=== PATIENT | male | born 1975 | race Caucasian/White ===

== ENCOUNTER → 2021-03-11 11:00 | Outpatient (BNVA) | payer BC, SELFPAY | PROVIDERS: PCP Internal Medicine; Visit Provider Urology ==

== ENCOUNTER → 2021-09-09 11:43 | Outpatient (BNVA) | payer BC, SELFPAY | PROVIDERS: PCP Internal Medicine; Visit Provider Urology | DX: F52.4 Premature ejaculation (principal) | CPT/HCPCS: 99212 ==

== ENCOUNTER → 2022-11-03 14:30 | Outpatient (BNVA) | payer BC, SELFPAY | PROVIDERS: PCP Internal Medicine; Visit Provider Urology ==

== ENCOUNTER → 2022-12-01 14:12 | Outpatient (BNVA) | payer BC, SELFPAY | PROVIDERS: PCP Internal Medicine; Visit Provider Urology ==

== ENCOUNTER 2023-11-13 14:01 | Outpatient (AMB) | payer BC, SELFPAY ==
--- NOTE | 2023-11-13 14:06 | MHC.OFFVIS ---
Intake Visit Reasons: follow up/LABS([facility] Pending) Allergies No Known Allergies Allergy (Verified 12/01/22 14:12) Medication List - Last Reconciled 11/13/23 by Ji Mohr MD cholecalciferol (vitamin D3) 10 mcg PO DAILY lisinopril 10 mg PO DAILY tadalafil 5 mg PO DAILY PRN 90 days tramadol 50 mg PO ONCE PRN HPI Comments Details: Gil is a very pleasant male. He is a patient of Dr. Canseco. He is seen for the following urologic conditions. - erectile dysfunction - premature ejaculation Follow-up premature ejaculation Prior trial dose of sertraline Follow-up of trial of tramadol which has been shown to be partially effective for premature ejaculation - did have benefit - refill provided Has been doing better with every other day 5 mg tadalafil Low normal testosterone for age QOD dosing for tadalafil PSA 11/07 0.5, T 390 Noticed libido decline in last 12 months Sleep study done for sleep terrors - question of sleep apnea since side sleeper May benefit from clomiphene versus testosterone Erectile dysfunction:? He presents today for?for continued evaluation and management of ejaculatory disorder, ?- premature ejaculation ? Symptoms have been present for/since?Ongoing ? Current treatment includes?low dose daily tadalafil ? At this time he experiences erections?are full, rigid and adequate for vaginal penetration, with rapid climax at penetration ? Nocturnal erections?do occur ? Medications include(s)?Tried SSRI. Had headache and was not effective. Repeat trial of combination therapy lead to blunting of affect PFSH Medical History HTN (hypertension) Premature ejaculation Surgical History H/O vasectomy Review of Systems Const Denies chills and Denies fever(s) Card Reports no additional complaints and Denies syncope Resp Denies cough GI Denies abdominal pain and Denies heartburn Reports as per HPI and Denies change in libido Neuro Denies syncope Psych Denies change in libido Endo Denies change in libido Physical Exam Const General: cooperative, healthy appearing, comfortable and no acute distress Orientation/consciousness: patient oriented x3 HEENT Face and sinus: Yes normal facial exam Mouth: moist mucous membranes Neck Neck: Yes normal visual inspection, Yes full ROM and Yes trachea midline Chest Chest palpation & inspection: normal inspection of the chest Resp Effort & Inspection: normal respiratory effort, able to speak in complete sentences and no respiratory distress GI Inspection: Yes normal to inspection Back/Spine/Pelvis Cervical Spine: normal cervical lordosis Thoracic/Lumbar Spine: thoracic and lumbar spine normal to inspection Skin General skin exam: no rashes or lesions noted Neuro General: patient oriented x3, gait normal, tone normal and moves all extremities Extrem General: Yes normal to inspection and Yes capillary refill normal Assessment & Plan Assessment & Plan (1) Erectile dysfunction: Code(s): N52.9 - Male erectile dysfunction, unspecified Category: Medical (2) Premature ejaculation: Code(s): F52.4 - Premature ejaculation Category: Medical (3) Low libido: Code(s): R68.82 - Decreased libido Category: Medical Plan Six-month follow-up Patient Instructions: Imaging studies, laboratory and physical exam results were discussed and reviewed in detail. No major barriers to patient understanding were identified. An opportunity to ask questions regarding the treatment plan was provided. All questions were answered. The patient expressed understanding and agreement with the above treatment plan. The patient is aware they should contact our office by phone for worsening of their current condition or the appearance of new urologic symptoms. Compliance is encouraged with any medications and followup testing that is ordered. It is a privilege to participate in the urologic care of your patient. If you have any questions or concerns regarding treatment for the above conditions, or other urologic issues, please do not hesitate to contact me. The office telephone contact is [phone]. This note is constructed using voice recognition software. While every effort has been made to ensure accuracy economist research assistant errors may have been included. Yours sincerely, Dr Ji Mohr MD, [facility] - Urology Providers of Expert, Compassionate Care for the Genitourinary System Coding Level of Care Code Est Pt Level 3 (74106) Diagnoses Erectile dysfunction N52.9 Premature ejaculation F52.4 Low libido R68.82
== END 2023-11-13 14:42 | disposition home or self-care (01) ==
PROVIDERS: PCP Internal Medicine; Visit Provider Urology
DX: N52.9 Male erectile dysfunction, unspecified (principal); F52.4 Premature ejaculation; R68.82 Decreased libido
CPT/HCPCS: 99213

== ENCOUNTER → 2023-11-13 14:01 | Outpatient (BNVA) | payer BC, SELFPAY | PROVIDERS: PCP Internal Medicine; Visit Provider Urology ==

== ENCOUNTER 2024-05-09 10:06 | Outpatient (AMB) | payer OTHER, SELFPAY ==
--- NOTE | 2024-05-09 10:13 | A.OFFVIS_ITS ---
Intake Visit Reasons: 6M follow up Intake Note: Patient is present for Telephone follow up Erectile Dys Urology Med: Tadalafil Antibiotic Allergy: None Blood Thinner:None Maintainer Central Office Required: No Allergies No Known Allergies Allergy (Verified 05/09/24 10:13) HPI Comments Details: Gil is a very pleasant male. He is a patient of Dr. Canseco. He is seen for the following urologic conditions. - erectile dysfunction - premature ejaculation Telemedicine Evaluation 15 min Consultation [employer] Video Discussed progression of decline in libido May benefit from testosterone stimulation Prescription provided for three-month Follow-up premature ejaculation Prior trial dose of sertraline Tramadol has helped with premature ejaculation - refill provided Has been doing better with every other day 5 mg tadalafil Low normal testosterone for age QOD dosing for tadalafil PSA 11/07 0.5, T 390, 12/08 T 360 Noticed libido decline in last 12 months Sleep study done for sleep terrors - question of sleep apnea since side sleeper Erectile dysfunction:? He presents today for?for continued evaluation and management of ejaculatory disorder, ?- premature ejaculation ? Symptoms have been present for/since?Ongoing ? Current treatment includes?low dose daily tadalafil ? At this time he experiences erections?are full, rigid and adequate for vaginal penetration, with rapid climax at penetration ? Nocturnal erections?do occur ? Medications include(s)?Tried SSRI. Had headache and was not effective. Repeat trial of combination therapy lead to blunting of affect PFSH Medical History Premature ejaculation HTN (hypertension) Surgical History H/O vasectomy Review of Systems Const All systems reviewed & are unremarkable except as noted in HPI and below Reports no additional complaints Resp Reports no additional complaints GI Reports no additional complaints Reports as per HPI Musc Reports no additional complaints Physical Exam Telemedicine evaluation Appropriate responses Regular breathing rate and rhythm HEENT Head: Yes normal to inspection Ears: hearing grossly normal bilaterally Eyes General: appearance normal, both eyes and all related structures Neck Neck: Yes normal visual inspection Chest Chest palpation & inspection: normal inspection of the chest Resp Effort & Inspection: normal respiratory effort and able to speak in complete sentences Telehealth Telehealth Telehealth Platform: [employer] Location of provider rendering services: practice address Location of patient: address on file Patient Identification confirmed using: Name, : Yes Telehealth method: video Patient verbally consented to treatment: Yes Patient verbally consented to billing insurance company: Yes Patient informed of any privacy concerns related to visit: Yes Minutes spent on Phone/Video with Pt.: 15 Assessment & Plan Assessment & Plan (1) Premature ejaculation: Code(s): F52.4 - Premature ejaculation Category: Medical (2) Low libido: Code(s): R68.82 - Decreased libido Category: Medical Plan Three-month follow-up testosterone Orders: Orders Testosterone, Free/Total 3 Months R68.82 - Decreased libido Medications: Refilled tramadol Take 2 hours prior to intended sexual activity 50 mg PO ONCE PRN 30 tabs 0RF premature ejaculation F52.4 - Premature ejaculation tadalafil administer approximately 30min before sexual activity; do not use more than 1 dose per 24hrs 5 mg PO DAILY 90 days PRN 90 tabs 1RF sexual activity F52.4 - Premature ejaculation Patient Instructions: Imaging studies, laboratory and physical exam results were discussed and reviewed in detail. No major barriers to patient understanding were identified. An opportunity to ask questions regarding the treatment plan was provided. All questions were answered. The patient expressed understanding and agreement with the above treatment plan. The patient is aware they should contact our office by phone for worsening of their current condition or the appearance of new urologic symptoms. Compliance is encouraged with any medications and followup testing that is ordered. It is a privilege to participate in the urologic care of your patient. If you have any questions or concerns regarding treatment for the above conditions, or other urologic issues, please do not hesitate to contact me. The office telephone contact is [phone]. This note is constructed using voice recognition software. While every effort has been made to ensure accuracy global analytics head errors may have been included. Yours sincerely, Dr Ji Mohr MD, [facility] - Urology Providers of Expert, Compassionate Care for the Genitourinary System Coding Level of Care Code Tele Est Pt Level 4 (51345) Diagnoses Premature ejaculation F52.4 Low libido R68.82
== END 2024-05-09 10:55 | disposition home or self-care (01) ==
LOC: HO.HUSH 10:06
PROVIDERS: PCP Internal Medicine; Visit Provider Urology
DX: R68.82 Decreased libido (principal); F52.4 Premature ejaculation
CPT/HCPCS: 99214

== ENCOUNTER → 2024-05-09 10:06 | Outpatient (BNVA) | payer OTHER, SELFPAY | PROVIDERS: PCP Internal Medicine; Visit Provider Urology ==

== ENCOUNTER 2024-09-10 08:31 | Outpatient (AMB) | payer OTHER, SELFPAY ==
--- NOTE | 2024-09-10 08:34 | A.OFFVIS_ITS ---
Intake Visit Reasons: 3 month follow up/ Testo Intake Note: Patient is present for 3M/TESTO Urology Medication:TADALAFIL Antibiotic Allergy:NONE Blood Thinner:NONE Chairman & Chief Executive Officer Required: No Allergies No Known Allergies Allergy (Verified 09/10/24 08:36) HPI Comments Details: Gil is a very pleasant male. He is a patient of Dr. Canseco. He is seen for the following urologic conditions. - erectile dysfunction - premature ejaculation Three-month follow-up from enclomiphene trial 6.25 mg daily Testosterone boost to 626 Significant improvement in well being Follow-up premature ejaculation Has been doing better with every other day 5 mg tadalafil Low normal testosterone for age QOD dosing for tadalafil PSA 11/07 0.5, T 390, 12/08 T 360, 09/09 T 626 FT 122 Noticed libido decline in last 12 months Sleep study done for sleep terrors - question of sleep apnea since side sleeper Erectile dysfunction:? Prior trial dose of sertraline Tramadol has helped with premature ejaculation - refill provided ? He presents today for?for continued evaluation and management of ejaculatory disorder, ?- premature ejaculation ? Symptoms have been present for/since?Ongoing ? Current treatment includes?low dose daily tadalafil ? At this time he experiences erections?are full, rigid and adequate for vaginal penetration, with rapid climax at penetration ? Nocturnal erections?do occur ? Medications include(s)?Tried SSRI. Had headache and was not effective. Repeat trial of combination therapy lead to blunting of affect PFSH Medical History Premature ejaculation HTN (hypertension) Surgical History H/O vasectomy Review of Systems Const Denies chills and Denies fever(s) Card Reports no additional complaints and Denies syncope Resp Denies cough GI Denies abdominal pain and Denies heartburn Reports as per HPI and Denies change in libido Neuro Denies syncope Psych Denies change in libido Endo Denies change in libido Physical Exam Const General: cooperative, healthy appearing, comfortable and no acute distress Orientation/consciousness: patient oriented x3 HEENT Face and sinus: Yes normal facial exam Mouth: moist mucous membranes Neck Neck: Yes normal visual inspection, Yes full ROM and Yes trachea midline Chest Chest palpation & inspection: normal inspection of the chest Resp Effort & Inspection: normal respiratory effort, able to speak in complete sentences and no respiratory distress GI Inspection: Yes normal to inspection Back/Spine/Pelvis Cervical Spine: normal cervical lordosis Thoracic/Lumbar Spine: thoracic and lumbar spine normal to inspection Skin General skin exam: no rashes or lesions noted Neuro General: patient oriented x3, gait normal, tone normal and moves all extremities Extrem General: Yes normal to inspection and Yes capillary refill normal Assessment & Plan Assessment & Plan (1) Hypogonadism in male: Code(s): E29.1 - Testicular hypofunction Category: Medical Plan Six-month follow-up lab work Continue combination tadalafil with enclomiphene Orders: Orders Lutenizing Hormone 6 Months E11.69 - Type 2 diabetes mellitus with other specified complication, E29.1 - Testicular hypofunction, N52.1 - Erectile dysfunction due to diseases classified elsewhere Prostate Specific Antigen 6 Months E29.1 - Testicular hypofunction Testosterone, Total 6 Months E29.1 - Testicular hypofunction Patient Instructions: This note is constructed using voice recognition software. While every effort has been made to ensure accuracy irrigation teacher errors may have been included. Imaging studies, laboratory and physical exam results were discussed and reviewed in detail. No major barriers to patient understanding were identified. An opportunity to ask questions regarding the treatment plan was provided. All questions were answered. The patient expressed understanding and agreement with the above treatment plan. The patient is aware they should contact our office by phone for worsening of their current condition or the appearance of new urologic symptoms. Compliance is encouraged with any medications and followup testing that is ordered. It is a privilege to participate in the urologic care of your patient. If you have any questions or concerns regarding treatment for the above conditions, or other urologic issues, please do not hesitate to contact me. The office telephone contact is [phone]. Sincerely, Dr Ji Mohr MD, [facility] - Urology Compassionate Specialist Care for the Genitourinary System Coding Level of Care Code Est Pt Level 3 (98853) Complex EM visit Add On G2211 Diagnoses Hypogonadism in male E29.1
--- OUTSIDE RECORDS SUMMARY | 2024-09-10 08:57 | XMS_ITS | Data Portability ---
Author Organization [place] - [facility], Allergy Address [address] [address] Care Team Providers Care Stove Mounter Name Role Phone GAYLE BILLY Primary Care Provider [phone] Assessment Encounter Date Assessment Date Assessment LastModified by Organization Details LastModified Time 08/06/2024 08/06/2024 The right canal wall down mastoidectomy cavity was debrided today under the binocular microscope. No signs of acute or chronic inflammation. Small tympanic membrane perforation of the right ear appears stable and is providing ventilation to the middle ear space. No need for intervention in this regard. We reviewed his audiogram from 2022 showing mild conductive hearing loss, not enough to warrant consideration of amplification. We discussed the importance of preventative mastoid debridement to reduce the risk of debris impaction and infection. Recommend next debridement in 1 year. [email or web address] Not available 08/06/2024 15:52:26 Plan of Treatment Reminders Order Date Submit Date Provider Last Modified By Organization Details Last Modified Time Details Appointments None record ed. Lab None record ed. Referral None record ed. Procedures None record ed. Surgeries None record ed. Imaging None record ed. Medication Orders None record ed. Patient TargetsNo targets recorded. Patient InstructionsNo instructions recorded. Reason for Referral None Reported. 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; Note: Date Diagnose d: 9 1:32 PM (M26.623 ) Not Available [facility] 4 02:51:17 Tinnitus of right ear 68429293804 08 Active 2017 Tinnitus , right ear; Note: Date Diagnose d: 8 9:33 AM (H93.11) Not Available [facility] 4 02:51:12 Nasal congesti on 85705518 Active 2017 Nasal congesti on; Note: Date Diagnose d: 8 3:33 PM (R09.81) Not Available [facility] 4 02:51:14 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 541174195 Completed 201701/18/2024 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, right ear; Note: Changed from H71.01 to H95.01 (11/02/19 18 12:31 PM) , Date Diagnose d: 8 2:44 PM (H71.01) Not Available [facility] 4 02:51:13 Referred otalgia 20500712 Active 2018 Otalgia secondar y to TMJ; Note: Date Diagnose d: 9 1:29 PM (388.72) Not Available [facility] 4 02:51:14 Granulat ions of mastoid cavity 523388921 Active 2017 Granulat ion of postmast oidectom y cavity, right ear; Note: Date Diagnose d: 05/08/20 18 8:51 AM (H95.121 ) Not Available [facility] 4 02:51:15 Conducti ve hearing loss 65188601 Active 2022 Conducti ve hearing loss, unilater al, right ear, with unrestri cted hearing on the contrala teral side; Note: Date Diagnose d: 3 3:09 PM (H90.11) Conduc tive hearing loss, unilater al, right ear, with unrestri cted hearing on the contrala teral side; Note: Date Diagnose d: 8 9:33 AM (H90.11) ; Start Date : 03/05/20 18 Not Available [facility] 4 02:51:17 Otalgia of right ear 1793147350 Active 2020 Otalgia, right ear; Note: Date Diagnose d: 1 3:43 PM (H92.01) Not Available [facility] 4 02:51:16 Disorder of right Eustachi an tube 94250668294 43730 Active 2017 Other specifie d disorder s of Eustachi an tube, right ear; Note: Date Diagnose d: 05/08/20 18 9:00 AM (H69.81) Not Available [facility] 4 02:51:15 Chronic serous otitis media of right ear 226603394 Active 2017 Chronic serous otitis media, right ear; Note: Date Diagnose d: 05/08/20 18 9:00 AM (H65.21) Not Available [facility] 4 02:51:12 Marginal perforat ion of tympanic membrane 62212713 Active 2020 Other marginal perforat ions of tympanic membrane , right ear; Note: Date Diagnose d: 1 3:40 PM (H72.2X1 ) Not Available [facility] 4 02:51:11 Mixed conducti ve and sensorin eural hearing loss of right ear 13188317285 105 Active 2017 Mixed conducti ve and sensorin eural hearing loss, unilater al, right ear with restrict ed hearing on the contrala teral side; Note: Date Diagnose d: 8 2:59 PM (H90.A31 ) Not Available [facility] 4 02:51:13 Partial loss of ear ossicles 14225414 Active 2017 Partial loss of ear ossicles , right ear; Note: Date Diagnose d: 8 12:48 PM (H74.321 ) Not Available [facility] 4 02:51:16 Postmast oidectom y complica tion 41694109 Active 2017 Other disorder s followin g mastoide ctomy, right ear; Note: Date Diagnose d: 12/18/2017 8:19 AM (H95.191 ) Not Available [facility] 4 02:51:13 Otorrhea of right ear 03319644413 12403 Active 2021 Otorrhea , right ear; Note: Date Diagnose d: 08/16/2021 9:03 AM (H92.11) Not Available [facility] 4 02:51:10 Follow-u p visit Active 2017 Encounte r for follow-u p examinat ion after complete d treatmen t for conditio ns other than malignan t neoplasm ; Note: Date Diagnose d: 8 10:13 AM (Z09) Not Available [facility] 4 02:51:13 Acute serous otitis media of right ear 99429711738 20041 Active 2021 Acute serous otitis media, right ear; Note: Date Diagnose d: 07/25/2021 3:08 PM (H65.01) Not Available [facility] 4 02:51:12 Conducti ve hearing loss 38024322 Active 2024 ROXANNA REESE MD [address] [place] [address], [place], [address] , [facility] 5 15:51:42 Problem Notes None recorded. Procedures Surgical History Date Name Laterality Status Provider Name and Address Organization Details Recorded Time 08/06/19 25 Debridement of Mastoid Cavity right completed ROXANNA REESE MD [address] [place] [address], [place], [address], [facility] 08/05/2024 20:32:39 extraction of wisdom tooth completed Georgina Orourke [facility] 08/06/2024 14:44:08 Imaging Results None recorded. Procedure Notes None recorded. Medical Equipment None Reported. Allergies No known drug allergies Medications Name Sig Start Date Stop Date Status Note LastModified by Organization Details LastModified Time tramadol 50 mg tablet PLEASE SEE ATTACHED FOR DETAILED DIRECTIO NS 08/06 completed Not Available Not Available Not Available meloxicam 7.5 mg tablet TAKE 1 TABLET BY MOUTH TWICE A DAY AFTER MEALS active Not Available Not Available No t Available cyanocoba aubree (vit B-12) 500 mcg tablet 2019 active Medicati on ID: [id number] D uration Value: 30 Brand Name: cyanocob alamin (vitamin B-12) Se nd Method: E-Prescr ibed Sub s Allowed: subs OK [facility] : cyanocob alamin (vitamin B-12) Not Available Not Available Not Available ciproflox acin 0.3 % eye drops 05/08 completed Medicati on ID: [id number] D uration Value: 30 Prescri bed By Name: To Anaya nd Name: ciproflo xacin HCl Send Method: E-Prescr ibed Sub s Allowed: subs OK Speci al Instruct ion: Instill 4 drops twice a day into right ear for 30 days Med icationG enericNa me: ciproflo xacin HCl Not Available Not Available Not Available lisinopri l 10 mg tablet TAKE 1 TABLET BY MOUTH EVERY DAY active Not Available Not Available No t Available gabapenti n 300 mg capsule TAKE 1 CAPSULE BY MOUTH EVERYDAY AT BEDTIME active Not Available Not Available No t Available [place] 5 mg-325 mg tablet 1-2 tablet by mouth 08/06 completed Medicati on ID: [id number] D uration Value: 7 Prescri bed By Name: To Anaya nd Name: [place] Se nd Method: E-Prescr ibed Sub s Allowed: subs OK [facility] : [place] Not Available Not Available Not Available neomycin- polymyxin -hydrocor t 3.5 mg-10,000 unit/mL-1 % ear drops,radha p 08/06 completed Medicati on ID: [id number] D uration Value: 10 Prescri bed By Name: To Anaya nd Name: neomycin -polymyx in-HC Se nd Method: E-Prescr ibed Sub s Allowed: subs OK Speci al Instruct ion: Apply 4 drops to right ear twice a day for 10 days Med icationG enericNa me: neomycin -polymyx in-HC Not Available Not Available Not Available TobraDex 0.3 %-0.1 % eye drops,radha pension 08/16 completed Medicati on ID: [id number] P isaiahribe d By Name: David Olbert, PA-C Bra nd Name: TobraDex Send Method: E-Prescr ibed Sub s Allowed: subs OK Speci al Instruct ion: Instill 3 drops in the affect ear BID for 14 days Med icationG enericNa me: TobraDex Not Available Not Available Not Available tadalafil 5 mg tablet TAKE ONE TABLET BY MOUTH EVERY DAY NEEDED FOR SEXUAL ACTIVITY APPROXIM ATELY 30 MINUTES BEFORE SEXUAL ACTIVITY * DO NOT USE MORE THAN 1 DOS active Not Available Not Available No t Available Vitals Date Recorded Body height Body weight Provider Name and Address Organization Details Last Updated DateTime 08/06/2024 177.8 cm 92047.44 g Georgina Orourke [place] - [facility] 08/06/2024 15:37:09 Social History None recorded. Functional Status None recorded. Mental Status None recorded. Family History Nothing Reported. Medical History Condition Response Allergies/Hayfever Y Hypertension Y Past Encounters Encounter ID Performer Location Encounter Start Date Encounter Closed Date Diagnosis/Indication Diagnosis SNOMED-CT Code Diagnosis ICD10 Code Diagnosis Note [id number] ROXANNA REESE MD [facility] [address] [address] 08/06/2024 14:37:26 08/06/2024 15:52:15 Marginal perforation of tympanic membrane 14541865 H72.2X1 Postmastoi dectomy complication 76892472 H95.191 Conductive hearing loss 57851734 H90.11 Health Concerns Section Related Observation LastModified by Organization Detai ls LastModified Time None Recorded Concern Status LastModified by Organization Details LastModified Time None Recorded Advance Directives Directive None Recorded Payers Encounter Date Sequence Insurance Name Policy Number Policy Figueredo Covered Member ID Figueredo Member ID Guarantor Name 08/06/[address] [place] [address] ([facility]) [id number] Gil Vo [id number] Gil Vo Notes Date Note Type Note Provider Name and Address Organization Details Recorded Time 08/06/2024 text/html Patient with history of right modified radical mastoidectomy with meatoplasty in November 2017 for excision of recurrent cholesteatoma. Patient had right myringotomy with tube placed April 2018 which required replacement at a subsequent visit. The tube extruded leaving him with a small perforation at the tube site which is maintaining ventilation to the middle ear space. He comes in for routine mastoid debridement. Last cleaning was about a year and a half ago. Patient has not had any significant copious discharge from the ear, but he has had occasional blockage sensation. He has been doing well lately. Doing well from an auditory standpoint ROXANNA REESE MD [address] [place] [address], [place], [address], [facility] - [facility] 08/06/2024 15:52:47
--- OUTSIDE RECORDS SUMMARY | 2024-09-10 08:57 | XMS_ITS ---
Author Name [facility] Organization Unknown History of Medication Use Medication Directions Dispensed Refills Start Date End Date Stat us magnesium 30 mg tablet Take 1 tablet (30 mg total) by mouth 2 (two) times a day active cholecalciferol, vitamin D3, (cholecalciferol) 10 mcg (400 unit) tab Take by mouth act evangelist Problems Problem Status Onset Date Problem Type Date of Resolution Source Encounter for dietary counseling and surveillance active EncounterDiagnosisAct [facility] _[facility] Primary hypertension active EncounterDiagnosisAct [facility] Screening for diabetes mellitus (DM) active EncounterDiagnosisAct [facility] Screening for cholesterol level active EncounterDiagnosisAct C T_CVSMCCT Encounters Encounter Type Encounter Reason Primary Diagnosis Location Date Ambulatory Wellness Screening Dietary couns eling and surveillance [facility] [place] 04/03/2024 Ambulatory Flu Vaccine Encounter for immunization [facility] [place] 03/25/2024 Care Team Organization Name Specialty Phone Email Start Date End Da te [facility] [place] NO PCP Primary Care 03/25
--- OUTSIDE RECORDS SUMMARY | 2024-09-10 08:57 | XMS_ITS | Clinical Summary ---
Author Organization [facility] Address [address] [place] [address] Care Team Providers Care Podiatric Aide Name Role Phone Unavailable Primary Care Provider Unavailabl e Social History Tobacco Use Types Packs/Day Years Used Date Smoking Tobacco: Never Assessed Sex and Gender Information Value Date Recorded Sex Assigned at Not on file Gender Identity Not on file Sexual Orientation Not on file Plan of Treatment Health Maintenance Due Date Last Done Comments Hepatitis B Vaccines (1 of 3 - 3-dose series) 1977 Hepatitis C Screening 1977 COVID-19 Vaccine (#1) 1977 Depression Screening 1989 Preventative Health Evaluation 1995 DTap / Tdap / Td (1 - Tdap) 02/29/1996 Colon Cancer Screening (Colonoscopy) 2022 Influenza Vaccine (#1) 2024 Pneumococcal Vaccine Aged Out No long er eligible based on patient's age to complete this topic RSV Ped < 20 months Aged Out No longe r eligible based on patient's age to complete this topic
== END 2024-09-10 09:04 | disposition home or self-care (01) ==
LOC: HO.HUSH 08:32
PROVIDERS: PCP Internal Medicine; Visit Provider Urology
DX: E29.1 Testicular hypofunction (principal)
CPT/HCPCS: 99213

== ENCOUNTER → 2024-09-10 08:31 | Outpatient (BNVA) | payer OTHER, SELFPAY | PROVIDERS: PCP Internal Medicine; Visit Provider Urology ==

== ENCOUNTER 2025-02-20 09:55 | Outpatient (REF) | payer OTHER, SELFPAY ==
--- OUTSIDE RECORDS SUMMARY | 2025-02-20 10:43 | XMS_ITS | Clinical Summary ---
Author Organization [employer] [facility] Address [address] [place] [address] Care Team Providers Care Rent Collector Name Role Phone Unavailable Primary Care Provider [...] Cancer Screening (Colonoscopy) 2022 Influenza Vaccine (#1) 2025 Pneumococcal Vaccine Aged Out No long er eligible based on patient's age to complete this topic RSV Ped < 20 months Aged Out No longe r eligible based on patient's age to complete this topic [address] [id number]
--- OUTSIDE RECORDS SUMMARY | 2025-02-20 10:43 | XMS_ITS ---
Author Name [facility] Organization Unknown History of Medication Use Medication Directions Dispensed Refills Start Date End Date Stat us cholecalciferol, vitamin D3, (cholecalciferol) 10 mcg (400 unit) tab Take by mouth act evangelist magnesium 30 mg tablet Take 1 tablet (30 mg total) by mouth 2 (two) times a day active Problems Problem Status Onset Date Problem Type Date of Resolution Source Encounter for dietary counseling and surveillance active EncounterDiagnosisAct CT _[facility] Primary hypertension active EncounterDiagnosisAct CT_[facility] Screening for diabetes mellitus (DM) active EncounterDiagnosisAct CT_[facility] Screening for cholesterol level active EncounterDiagnosisAct C T_CVSMCCT Encounters Encounter Type Encounter Reason Primary Diagnosis Location Date Ambulatory Wellness Screening Dietary couns eling and surveillance [facility] [place] 04/03/2024 Ambulatory Flu Vaccine Encounter for immunization [facility] [place] 03/25/2024 Care Team Organization Name Specialty Phone Email Start Date End Da te [facility] [place] NO PCP Primary Care 03/25
[2025-02-20 14:00] LABS: Prostate Specific Antigen 0.49 ng/mL (<0.05-4.0)
== END 2025-02-20 09:56 | disposition home or self-care (01) ==
LOC: HO.HKASLDS 09:55
PROVIDERS: Visit Provider Urology
DX: Z12.5 Encounter for screening for malignant neoplasm of prostate (principal); E11.69 Type 2 diabetes mellitus with other specified complication; E29.1 Testicular hypofunction; N52.1 Erectile dysfunction due to diseases classified elsewhere
CPT/HCPCS: 36415; 83002; 84153; 84403

== ENCOUNTER 2025-03-13 08:46 | Outpatient (AMB) | payer OTHER, SELFPAY ==
--- NOTE | 2025-03-13 08:47 | MHC.OFFVIS ---
Intake Visit Reasons: 6m/labs Intake Note: patient presents today for: 6mo follow up urology medications: tadalafil blood thinners: none labs done 02/20/25: PSA 0.49, LH 5.7, t-testo 378 Instructional Resource Teacher Required: No Accompanied by: Self / Same As Patient Allergies No Known Allergies Allergy (Verified 03/13/25 08:47) HPI Comments Details: Gil is a very pleasant male. He is a patient of Dr. Canseco. He is seen for the following urologic conditions. - erectile dysfunction - premature ejaculation Telemedicine Evaluation 15 min Consultation [facility] Video Six-month interval surveillance QOD dosing for tadalafil PSA 11/07 0.5, T 390, 12/08 T 360, 09/09 T 626 FT 122, 03/12 400 0.5 5.7 Sleep study done for sleep terrors - question of sleep apnea since side sleeper Refill medications Would like to continue with enclomiphene Borderline low testosterone Had indicated low libido Initial labs high 300s Prior good response from enclomiphene trial 6.25 mg dailyTestosterone boost to 626 Significant improvement in well being Erectile dysfunction:? Prior trial dose of sertraline Tramadol has helped with premature ejaculation - refill provided ? He presents today for?for continued evaluation and management of ejaculatory disorder, ?- premature ejaculation ? Symptoms have been present for/since?Ongoing ? Current treatment includes?low dose daily tadalafil ? At this time he experiences erections?are full, rigid and adequate for vaginal penetration, with rapid climax at penetration ? Nocturnal erections?do occur ? Medications include(s)?Tried SSRI. Had headache and was not effective. Repeat trial of combination therapy lead to blunting of affect PFSH Medical History Premature ejaculation HTN (hypertension) Surgical History H/O vasectomy Review of Systems Const All systems reviewed & are unremarkable except as noted in HPI and below Reports no additional complaints Resp Reports no additional complaints GI Reports no additional complaints Reports as per HPI Musc Reports no additional complaints Physical Exam Telemedicine evaluation Appropriate responses Regular breathing rate and rhythm HEENT Head: Yes normal to inspection Ears: hearing grossly normal bilaterally Eyes General: appearance normal, both eyes and all related structures Neck Neck: Yes normal visual inspection Chest Chest palpation & inspection: normal inspection of the chest Resp Effort & Inspection: normal respiratory effort and able to speak in complete sentences Telehealth Telehealth Telehealth Platform: [facility] Location of provider rendering services: practice address Location of patient: address on file Patient Identification confirmed using: Name, : Yes Telehealth method: video Patient verbally consented to treatment: Yes Patient verbally consented to billing insurance company: Yes Patient informed of any privacy concerns related to visit: Yes Minutes spent on Phone/Video with Pt.: 15 Assessment & Plan Assessment & Plan (1) Premature ejaculation: Code(s): F52.4 - Premature ejaculation Category: Medical (2) Erectile dysfunction: Code(s): N52.9 - Male erectile dysfunction, unspecified Category: Medical (3) Low libido: Code(s): R68.82 - Decreased libido Category: Medical Plan Six-month follow-up lab work office Orders: Orders Testosterone, Total 5 Months E29.1 - Testicular hypofunction Hematocrit 5 Months E29.1 - Testicular hypofunction Prostate Specific Antigen 5 Months E29.1 - Testicular hypofunction Medications: New [enclomiphene] [facility] [place] - Fax Patient Cell Number - [phone] 1 tab PO DAILY [address] [facility] - Fax 90 days E29.1 - Testicular hypofunction Refilled tadalafil 5 mg PO DAILY PRN 90 tabs 1RF sexual activity 90 days F52.4 - Premature ejaculation tramadol Take 2 hours prior to intended sexual activity 50 mg PO ONCE PRN 30 tabs 0RF premature ejaculation F52.4 - Premature ejaculation Patient Instructions: This note is constructed using voice recognition software. While every effort has been made to ensure accuracy emergency medicine physician errors may have been included. Imaging studies, laboratory and physical exam results were discussed and reviewed in detail. No major barriers to patient understanding were identified. An opportunity to ask questions regarding the treatment plan was provided. All questions were answered. The patient expressed understanding and agreement with the above treatment plan. The patient is aware they should contact our office by phone for worsening of their current condition or the appearance of new urologic symptoms. Compliance is encouraged with any medications and followup testing that is ordered. It is a privilege to participate in the urologic care of your patient. If you have any questions or concerns regarding treatment for the above conditions, or other urologic issues, please do not hesitate to contact me. The office telephone contact is [phone]. Sincerely, Dr Ji Mohr MD, [facility] - Urology Compassionate Specialist Care for the Genitourinary System Coding Level of Care Code Tele Est Pt Level 3 (26196) Complex EM visit Add On G2211 Diagnoses Premature ejaculation F52.4 Erectile dysfunction N52.9 Low libido R68.82
--- OUTSIDE RECORDS SUMMARY | 2025-03-13 09:23 | XMS_ITS | Data Portability ---
Author Organization [facility], Allergy Address [address] [place] [id number] Care Team Providers Care Posting Specialist Name Role Phone GAYLE BILLY Primary Care Provider [phone] Assessment Encounter Date Assessment Date Assessment LastModified [...] infection. Recommend next debridement in 1 year. 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, right ear; Note: Changed from H71.01 to H95.01 (11/02/19 18 12:31 PM) , Date Diagnose d: 8 2:44 PM (H71.01) Not Available [facility] 4 02:51:13 Mixed conducti ve and sensorin eural hearing loss of right ear 65358755200 105 Active 2017 Mixed conducti ve and sensorin eural hearing loss, unilater al, right ear with restrict ed hearing on the contrala teral side; Note: Date Diagnose d: 8 2:59 PM (H90.A31 ) Not Available [facility] 4 02:51:13 Partial loss of ear ossicles 13439860 Active 2017 Partial loss of ear ossicles , right ear; Note: Date Diagnose d: 8 12:48 PM (H74.321 ) Not Available [facility] 4 02:51:16 Follow-u p visit Active 2017 Encounte r for follow-u p examinat ion after complete d treatmen t for conditio ns other than malignan t neoplasm ; Note: Date Diagnose d: 8 10:13 AM (Z09) Not Available [facility] 4 02:51:13 Postmast oidectom y complica tion 65086168 Active 2017 Other disorder s followin g mastoide ctomy, right ear; Note: Date Diagnose d: 12/18/2017 8:19 AM (H95.191 ) Not Available [facility] 4 02:51:13 Tinnitus of right ear 50316434093 08 Active 2017 Tinnitus , right ear; Note: Date Diagnose d: 8 9:33 AM (H93.11) Not Available [facility] 4 02:51:12 Granulat ions of mastoid cavity 852671718 Active 2017 Granulat ion of postmast oidectom y cavity, right ear; Note: Date Diagnose d: 05/08/20 18 8:51 AM (H95.121 ) Not Available [facility] 4 02:51:15 Disorder of right Eustachi an tube 09219270048 34242 Active 2017 Other specifie d disorder s of Eustachi an tube, right ear; Note: Date Diagnose d: 05/08/20 18 9:00 AM (H69.81) Not Available [facility] 4 02:51:15 Chronic serous otitis media of right ear 153982144 Active 2017 Chronic serous otitis media, right ear; Note: Date Diagnose d: 05/08/20 18 9:00 AM (H65.21) Not Available [facility] 4 02:51:12 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 67577555968 673483 Active 2018 Arthralg ia of bilatera l temporom andibula r joint; Note: Date Diagnose d: 9 1:32 PM (M26.623 ) Not Available [facility] 4 02:51:17 Referred otalgia 54385777 Active 2018 Otalgia secondar y to TMJ; Note: Date Diagnose d: 9 1:29 PM (388.72) Not Available [facility] 4 02:51:14 Otalgia of right ear 9357514672 Active 2020 Otalgia, right ear; Note: Date Diagnose d: 1 3:43 PM (H92.01) Not Available [facility] 4 02:51:16 Marginal perforat ion of tympanic membrane 42678211 Active 2020 Other marginal perforat ions of tympanic membrane , right ear; Note: Date Diagnose d: 1 3:40 PM (H72.2X1 ) Not Available [facility] 4 02:51:11 Acute serous otitis media of right ear 60087300878 80401 Active 2021 Acute serous otitis media, right ear; Note: Date Diagnose d: 07/25/2021 3:08 PM (H65.01) Not Available [facility] 4 02:51:12 Otorrhea of right ear 56690511517 96015 Active 2021 Otorrhea , right ear; Note: Date Diagnose d: 08/16/2021 9:03 AM (H92.11) Not Available [facility] 4 02:51:10 Conducti ve hearing loss 49620810 Active 2022 Conducti ve hearing loss, unilater al, right ear, with unrestri cted hearing on the contrala teral side; Note: Date Diagnose d: 3 3:09 PM (H90.11) Conduc tive hearing loss, unilater al, right ear, with unrestri cted hearing on the contrala teral side; Note: Date Diagnose d: 8 9:33 AM (H90.11) ; Start Date : 03/05/20 18 Not Available [facility] 4 02:51:17 Conducti ve hearing loss 13746413 Active 2024 ROXANNA REESE MD [address] [place] [address], [place], [phone] , [facility] 5 15:51:42 Problem Notes None recorded. Procedures Surgical History Date Name Laterality Status Provider Name and Address Organization Details Recorded Time 08/06/19 25 Debridement of Mastoid Cavity right completed ROXANNA REESE MD [address] [place] [address], [place], [phone], [facility] 08/05/2024 20:32:39 extraction of wisdom tooth completed Georgina Orourke [facility] 08/06/2024 14:44:08 Imaging Results None recorded. Procedure [...] mcg tablet 2019 active Medicati on ID: [id number] D uration Value: 30 Brand Name: cyanocob alamin (vitamin B-12) Se nd Method: E-Prescr ibed Sub s Allowed: [facility] [place] [facility]ocob alamin (vitamin B-12) Not Available Not Available Not Available ciproflox acin 0.3 % eye drops 05/08 completed Medicati on ID: [id number] D uration Value: 30 Prescri bed By [...] Not Available Not Available No t Available Fountain 5 mg-325 mg tablet 1-2 tablet by mouth 08/06 completed Medicati on ID: [id number] D uration Value: 7 Prescri bed By Name: To Anaya nd Name: Fountain Se nd Method: E-Prescr ibed Sub s Allowed: subs [place] [facility] Fountain Not Available Not Available Not Available neomycin- polymyxin -hydrocor t 3.5 mg-10,000 unit/mL-1 % ear drops,radha p 08/06 completed Medicati on ID: [id number] D uration Value: 10 Prescri bed By [...] drops,radha pension 08/16 completed Medicati on ID: [id number] P rescricristina d By Name: NORMA Lamas nd Name: TobraDex Send Method: E-Prescr ibed [...] Details Last Updated DateTime 08/06/2024 177.8 cm 52370.44 g Georgina Orourke [facility] 08/06/2024 15:37:09 Social History None recorded. Functional Status None recorded. Mental Status None recorded. Family History Nothing Reported. Medical History Condition Response Allergies/Hayfever Y Hypertension Y Past Encounters Encounter ID Performer Location Encounter Start Date Encounter Closed Date Diagnosis/Indication Diagnosis SNOMED-CT Code Diagnosis ICD10 Code Diagnosis IMO Codes Diagnosis Note [id number] ROXANNA REESE MD [facility] [address] [phone] 08/06/2024 14:37:26 08/06/2024 15:52:15 Marginal perforation of tympanic membrane 17294885 H72.2X1 Postmastoi dectomy complication 59463036 H95.191 Conductive hearing loss 14552241 H90.11 Health Concerns Section Related Observation LastModified by Organization Detai ls LastModified Time None Recorded Concern Status LastModified by Organization Details LastModified Time None Recorded Advance Directives Directive None Recorded Payers Insurance Date Sequence Insurance Name Policy Number Policy Figueredo Covered Member ID Figueredo Member ID Guarantor Name 08/06/[address] [place] [address] ([facility]) [id number] Gil Vo [id number] Gil Vo Notes Date Note Type Note [...] from an auditory standpoint ROXANNA REESE MD [address] [place] [address], [phone], [facility] 08/06/2024 15:52:47
--- OUTSIDE RECORDS SUMMARY | 2025-03-13 09:23 | XMS_ITS | Clinical Summary ---
Author Organization [facility] Address [address] [place] [address] Care Team Providers Care Internet Webmaster Name Role Phone Unavailable Primary Care Provider [...] patient's age to complete this topic [phone] [id number]
== END 2025-03-13 09:57 | disposition home or self-care (01) ==
LOC: HO.HUSH 08:46
PROVIDERS: PCP Internal Medicine; Visit Provider Urology
DX: F52.4 Premature ejaculation (principal); N52.9 Male erectile dysfunction, unspecified; R68.82 Decreased libido
CPT/HCPCS: 99213; G2211